=== PATIENT | female | born 1985 | race Hispanic/Latino ===

== ENCOUNTER 2017-10-23 10:05 | Emergency (ER) | payer BC ==
[2017-10-23 10:10] VITALS: BMI 23.3
--- NOTE | 2017-10-23 10:40 | ED PDOC ---
HPI: Female Pain Time Seen by Provider: 10/23/17 10:28 Chief Complaint (Nursing): Abdominal Pain History Per: Patient Onset/Duration Of Symptoms: Days (3) Current Symptoms Are (Timing): Still Present Severity: Moderate Pain Scale Rating Of: 4 Quality Of Discomfort: Cramping Additional Complaint(s): Lower abd cramping over past 3 days. denies vaginal bleeding. Has been trying to get . Seen by OB this AM and urine preg pos. , LMP September 20 Abnormal Vaginal Bleeding: No Past Medical History Vital Signs: Last Vital Signs Temp 98.4 F 10/23/17 10:12 Pulse 81 10/23/17 10:12 Resp 18 10/23/17 10:12 BP 118/71 10/23/17 10:12 Pulse Ox 100 10/23/17 10:12 - Medical History PMH: No Chronic Diseases - Family History Family History: States: Unknown Family Hx - Immunization History Hx Tetanus Toxoid Vaccination: No Hx Influenza Vaccination: No Hx Pneumococcal Vaccination: No - Allergies Allergies/Adverse Reactions: Allergies Allergy/AdvReac Type Severity Reaction Status Date / Time No Known Allergies Allergy Verified 10/23/17 10:31 Review of Systems Gastrointestinal: Positive for: Abdominal Pain Genitourinary Female: Negative for: Vaginal Bleeding Physical Exam - Physical Exam Appears: Positive for: Non-toxic, No Acute Distress Skin: Positive for: Normal Color, Warm, DRY Gastrointestinal/Abdominal: Positive for: Normal Exam, Soft. Negative for: Tenderness Pelvic Exam: Positive for: External Exam Normal. Negative for: Active Bleeding , Tender Adnexa, Tender Uterus - Laboratory Results Result Diagrams: 10/23/17 11:25 - ECG O2 Sat by Pulse Oximetry: 100 Medical Decision Making Medical Decision Making: Evaluated by Dr. Gómez, possibilty of ectopic discussed with Pt. Pt to see Dr. French Friday 10/27 for repeat Beta HCG. Advised to return to ED if increased pain or vaginal bleeding Disposition - Clinical Impression Clinical Impression: Threatened - Patient ED Disposition Is Patient to be Admitted: No - Disposition Referrals: Jason Gómez MD [Staff Provider] - Disposition: Routine/Home Disposition Time: 14:09 Condition: FAIR Instructions: Bleeding With , Threatened Miscarriage, Ectopic Forms: [email or web address] ([place])
[2017-10-23 11:53] LABS: BASO % 0.8 % (0.0-2.0); EOS # 0.1 K/uL (0.0-0.7); EOS % 2.8 % (0.0-4.0); HEMOGLOBIN 14.2 g/dL (12.0-16.0); LYMPH # 1.4 K/uL (1.0-4.3); MEAN CELL VOLUME 93.7 fl (81.0-99.0); MEAN CORPUSCULAR HEMOGLOBIN 32.8 pg (27.0-31.0); MEAN CORPUSCULAR HGB CONC 35.1 g/dL (33.0-37.0); MEAN PLATELET VOLUME 8.1 fl (7.2-11.7); MONO # 0.5 K/uL (0.0-0.8); MONO % 9.4 % (0.0-10.0); NEUT # 3.1 K/uL (1.8-7.0); RBC 4.31 Mil/uL (3.80-5.20); RED CELL DISTRIBUTION WIDTH 12.9 % (11.5-14.5); WHITE BLOOD COUNT 5.1 K/uL (4.8-10.8)
--- NOTE | 2017-10-23 13:00 | US ---
HISTORY: r/o ectopic COMPARISON: Rule out ectopic no prior study available for comparison TECHNIQUE: Transvaginal sonographic evaluation of the pelvis performed. FINDINGS: UTERUS: The uterus is anteverted measuring approximately 6.9 x 4.5 x 3.8 cm. . No obvious intrauterine masses seen. ENDOMETRIUM: Endometrium measures approximately 9 mm in diameter. . No evidence of intrauterine CERVIX: No cervical abnormality identified. RIGHT OVARY: Measures 4.3 x 3.9 x 2.3 cm. There is a any elliptical shaped echogenic structure within the central portion of the right ovary that exhibits a peripheral on ring of increased flow. This could represent a collapsed corpus luteum cyst. In addition, there is a small rounded echogenic structure adjacent to the right ovary that measures approximately 9 0.3 mm. This focus does not exhibit any arterial flow findings must be considered an ectopic until proven otherwise and the face of positive beta HCG. Recommend followup serial serum beta HCG and serial ultrasound. . Normal flow. LEFT OVARY: Measures 2.9 x 2.3 x 1.7 cm. No solid mass. Normal flow. FREE FLUID: Free fluid is present. OTHER FINDINGS: None. IMPRESSION: No evidence of intrauterine gestation. There is also a small rounded echogenic structure adjacent to the right ovary that measures approximately 9.3 mm with free fluid in the pelvis. . This focus does not exhibit significant arterial flow. With a positive beta HCG, collectively these findings must be considered an ectopic until proven otherwise. Recommend followup serial serum beta HCG and serial ultrasound. Findings discussed with Dr. Cartagena at approximately 12:50 p.m. with written down and read back at aeration.
[2017-10-23 14:30] VITALS: BP 118/76; PULSE 79; RESP 17; TEMP 98.7; O2SAT 99
== END 2017-10-23 14:10 | disposition home or self-care (01) ==
LOC: H.ER 10:05
DX: O20.0 Threatened abortion (principal)

== ENCOUNTER 2018-06-29 09:23 | Emergency (ER) | payer BC ==
--- NOTE | 2018-06-29 14:19 | OBHP ---
Datetime: 06/29/2018 09:45 IP Adm Impression: Term, intrauterine ; No Active Labor; Intact Membranes IP Admit Plan: Observation/Evaluation Admit Comment, IP Provider: 33 y/o female at 40.2 week GA by LMP 09/20/18 presents to [facility] w/ c/o painful and intense contractions, which began last night at 6PM. She denies VB, VFL, urinary sx. She endorses movements. No sexual activity in last 24 hours. OB: Dr. Gómez Pmhx: denies HomeRx: vitamins Famhx: non contributory Surghx: denies Socialhx: denies toxic habits Allergies: NKDA ROS: negative except per HPI Physical Exam: Gen: not in acute distress Heart: S1 S2 present, RRR Lungs: Normal resp effort. Clear to auscultation bilaterally Abd: Gravid, soft, non-tender, normal BS SVE: (chaperoned by Nurse Asuncion) 1cm dialated Extremities: no swelling/erythema/tenderness Assessment and Plan 33 y/o female at 40.2 wk GA IUP w/ painful contractions GBS neg, HIV neg, RPR neg, HBsAg neg, Rubella non-immune SVE FT/1cm [place] shows regular contractions NST reactive Patient states she is not interested in epidural or other pain management. Will observe and reevaluate in 1-2 hours for progression 12:37PM Patient re-examined. SVE (by Dr. Babb) FT/1cm dilated. Patient counsled on the R/B/A of oscar ng admited vs. labor at home. She refuses pain management at this time. Patient would like to go home . ER precautions advised. Patient stable discharge to [facility]. Case discussed w/ attending, Dr. Holley Wilcox, pgyi OB Hospitalist on-call : With PGY1m I chery wylie examiend this patient. She was withher , mot her and high risk ob. Optoins given in terms of admisson (pain management, labor, augmentation, delivery).. .She decdied that she want to go home and labor. labor instructoins given. MAHNDO Pelvic Type - PN: Adequate Extremities - PN: Normal Abdomen - PN: Normal Back - PN: Not Done Breast - PN: Not Done Lungs - PN: Normal Heart - PN: Normal Thyroid - PN: Not Done Neurologic - PN: Not Done HEENT - PN: Not Done General - PN: Normal Presentation-Admit: Vertex Contraction Comments Provider: Q4-5mins Comments, ACOG Physical Exam: U/S at bedsite shows fetus in cephalic position Gestation - Est Wks by US: 40.2 IP Hx Assessment: The History has been Reviewed and is Current Vital Signs Provider: Reviewed IP Chief Complaint: Uterine contractions NICHD Variability Prov Fetus A: Moderate 6-25bpm NICHD Accel Fetus A IP Provider: 15X15 FHR Category Provider Fetus A: Category I NICHD Decel Fetus A IP Provider: None Dilatation, Provider: 1 Genitourinary Exam: Not Done DTRs - PN: Not Done
--- NOTE | 2018-06-29 14:23 | OBDCSUM ---
Datetime: 06/29/2018 12:38 Discharged to, Provider: Home Follow up at, Provider: Dr Gómez Disch Instr Activity: Normal activity; May be up to bathroom; May be up for meals; May Shower Disch Instr Diet: Regular Discharge Diagnosis, Provider: False Labor - Undelivered Discharge Time: 06/29/2018 12:40 Follow up in weeks, Provider: 07/05/2017 Disch Referrals: None
[2018-06-29 17:41] VITALS: BMI 29.2
== END 2018-06-29 12:42 | disposition home or self-care (01) ==
LOC: H.EROB2 09:23 → H.EROB 10:03 → H.EROB2 12:42
DX: O26.93 Pregnancy related conditions, unspecified, third trimester (principal); R10.2 Pelvic and perineal pain; O48.0 Post-term pregnancy; Z3A.40 40 weeks gestation of pregnancy

== ENCOUNTER 2018-06-29 17:04 | Inpatient (IN) | payer BC ==
[2018-06-29] MEDS: Lactated Ringer's 1,000 ML IV ONE ×3 (17:35→19:28)
[2018-06-29] MEDS ORDERED: Lidocaine 1% Inj (20ml) ONE (17:36)
[2018-06-29 17:46] VITALS: BMI 29.2
[2018-06-29] MEDS ORDERED: Oxytocin 30 UNIT 30 UNITS/500 ML BAG IV ONE (17:46)
[2018-06-29] MEDS ORDERED: OXYTOCIN/0.9 % NS 20 UNIT/1,000 ML BAG IV ONE (18:08)
[2018-06-29 18:45] LABS: BASO % 0.1 % (0.0-2.0); LYMPH # 0.8 K/uL (1.0-4.3); LYMPH % 3.9 % (20.0-40.0); MEAN CELL VOLUME 91.7 fl (81.0-99.0); MEAN CORPUSCULAR HEMOGLOBIN 31.1 pg (27.0-31.0); MEAN CORPUSCULAR HGB CONC 33.9 g/dL (33.0-37.0); MEAN PLATELET VOLUME 10.3 fl (7.2-11.7); MONO # 0.5 K/uL (0.0-0.8); MONO % 2.7 % (0.0-10.0); NEUT # 19.1 K/uL (1.8-7.0); NEUT % 93.3 % (50.0-75.0); PLATELET COUNT 172 K/uL (130-400); RBC 4.17 Mil/uL (3.80-5.20); RED CELL DISTRIBUTION WIDTH 13.8 % (11.5-14.5); WHITE BLOOD COUNT 20.5 K/uL (4.8-10.8)
--- NOTE | 2018-06-29 19:52 | OBADHP ---
Datetime: 06/29/2018 19:00 Presentation-Admit: Vertex FHR - Baseline A Provider: 150 Membranes, Provider: Ruptured NICHD Variability Prov Fetus A: Moderate 6-25bpm NICHD Accel Fetus A IP Provider: [id number] FHR Category Provider Fetus A: Category II Dilatation, Provider: 9 Effacement, Provider: 100 Station, Provider: 0 Datetime: 06/29/2018 17:49 Pelvic Type - PN: Adequate Extremities - PN: Normal Abdomen - PN: Normal Lungs - PN: Normal Heart - PN: Normal General - PN: Normal Contraction Comments Provider: Q4-5mins Gestation - Est Wks by US: 40.2 IP Hx Assessment: The History has been Reviewed and is Current IP Chief Complaint: Uterine contractions NICHD Decel Fetus A IP Provider: None Genitourinary Exam: Normal EGA AdmitDate IP: 40.2 IP Adm Impression: Term, intrauterine ; Active labor IP Admit Plan: Admit to unit Datetime: 06/29/2018 17:30 Admit Comment, IP Provider: 33 y/o female at 40.2 week GA by LMP 09/20/18 presents to [facility] w/ c/ contractions that are becoming more painful and intense, which began last night at 6PM. She denies VB , VFL, urinary sx. She endorses movements. No sexual activity in last 24 hours. She was evaluat ed earlier today in [facility] and was not in active labor at that time. OB: Dr. Gómez Pmhx: denies HomeRx: vitamins Famhx: non contributory Surghx: denies Socialhx: denies toxic habits Allergies: NKDA ROS: negative except per HPI Physical Exam: Gen: Uncomfortable Heart: S1 S2 present, RRR Lungs: Normal resp effort. Clear to auscultation bilaterally Abd: Gravid, soft, non-tender, normal BS SVE: (by Nurse Cinthia) 8cm dialated, 100%, 0 Extremities: no swelling/erythema/tenderness Assessment and Plan 33 y/o female at 40.2 wk GA IUP w/ painful contractions GBS neg, HIV neg, RPR neg, HBsAg neg, Rubella non-immune SVE 8cm/100/0. [place] shows regular contractions; patient is in active labor Admit Patient to L_D CBC, type and screen ordered 1L LR IV bolus [place] and NST monitoring NPO Case discussed w/ attending, Dr. Holley Wilcox, pgyi Ob Hospitalist on-call WithPGY1 I saw and examined this patinet. 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 She is in active labor...motniro labor progress. Pain management options discussed. Radha EM Vital Signs Provider: Reviewed; Within Normal Limits Datetime: 06/29/2018 09:45 Back - PN: Not Done Breast - PN: Not Done Thyroid - PN: Not Done Neurologic - PN: Not Done HEENT - PN: Not Done Comments, ACOG Physical Exam: U/S at bedsite shows fetus in cephalic position DTRs - PN: Not Done
[2018-06-29] MEDS ORDERED: Oxycodone/Acetaminophen 5/325 mg Tab PO PRN ×2 (20:21→23:30)
[2018-06-29] MEDS ORDERED: Benzocaine/Menthol SPRAY TOP PRN ×2 (20:21→23:30)
[2018-06-29 20:46] LABS: ANISOCYTOSIS SLIGHT; BANDS 1 % (0-2); LYMPHOCYTE 7 % (20-50); MONOCYTE 5 % (0-10); NEUTROPHIL 87 % (42-75); PLATELET ESTIMATE NORMAL (NORMAL); TOTAL CELLS COUNTED 100
--- NOTE | 2018-06-29 21:45 | OBDS ---
DELIVERY PERSONNEL Delivery Doctor: Ashley Babb DO Scrub Nurse: Chiquita Cantu Principal Android Developer: Sherry Sharif RN MATERNAL INFORMATION Delivery Anesthesia: Local Medications in Delivery: lidocaine 2%, pitocin 30units/500ml @ 999ml/hr Estimated Blood Loss (ml): 100 Placenta Cultured: No Maternal Complications: None Provider Comments: Over intact perineum, of live male. One loose nuchal cord was reduc ed upon delivery. Infant was crying spontaneously and bulb suctioned nasopharygeally. Placenta was delivered intact spontaneously. 9,9. She remained stable. After 300cc fluid/after placenta 400cc - EBL 100cc LABOR SUMMARY EDC: 06/27/2018 00:00 No. Babies in Womb: 1 Attempted: No Labor Anesthesia: None LABOR INFORMATION Reason for Induction: Not Applicable Onset of Labor: 06/28/2018 18:00 Complete Dilatation: 06/29/2018 20:00 Oxytocin: N/A Group B Beta Strep: Negative Antibiotics # of Doses: n/a Antibiotics Time of Last Dose: n/a Steroids Given: None Reason Steroids Not Administered: Not Applicable MEMBRANES Membranes Rupture Method: Spontaneous Rupture of Membranes: 06/29/2018 18:57 Length of Rupture (hrs): 1.28 Amniotic Fluid Color: Clear Amniotic Fluid Amount: Large Amniotic Fluid Odor: Normal STAGES OF LABOR Stage 1 hrs: 26 Stage 1 min: 0 Stage 2 hrs: 0 Stage 2 min: 14 Stage 3 hrs: 0 Stage 3 min: 5 Total Time in Labor hrs: 26 Total Time in Labor min: 19 VAGINAL DELIVERY Episiotomy: None Laceration Extension: Second Degree Laceration Type: Perineal Laceration Repair: Yes Laceration Repair Note: 1% Lidocaine infiltrated (3cc). Perineal laceration repaired with 2.0 Vicry l Rapide suture. Initial Vag Sponge Count: 5 Final Vag Sponge Count: 5 Initial Vag Sharps Count: 1 Final Vag Sharps Count: 1 Sponge Count Correct: Yes Sharps Count Correct: Yes Count Comment: 5 lap pads one syringe one suture BABY A INFORMATION Delivery Date/Time: 06/29/2018 20:14 Method of Delivery: Vaginal Born in Route : No : N/A Forceps: N/A Vacuum Extraction: N/A Shoulder Dystocia : No SHOULDER DYSTOCIA BABY A Infant Delivery Date/Time: 06/29/2018 20:14 PRESENTATION/POSITION BABY A Presentation: Cephalic Cephalic Presentation: Vertex Breech Presentation: N/A PLACENTA INFORMATION BABY A Placenta Delivery Time : 06/29/2018 20:19 Placenta Method of Delivery: Spontaneous Placenta Status: Delivered SCORES BABY A Heart Rate 1 min: >100 bpm Resp Effort 1 min: Good Cry Reflex Irritability 1 min: Cough or Sneeze or Pulls Away Muscle Tone 1 min: Active Motion Color 1 min: Body [place], Extremities Blue Resuscitation Effort 1 min: N/A SCORE 1 MIN: 9 Heart Rate 5 min: >100 bpm Resp Effort 5 min: Good Cry Reflex Irritability 5 min: Cough or Sneeze or Pulls Away Muscle Tone 5 min: Active Motion Color 5 min: Body [place], Extremities Blue Resuscitation Effort 5 min: N/A SCORE 5 MIN: 9 INFORMATION BABY A Gestational Age at Delivery: 40.2 Gestational Status: Post-term Infant Outcome : Liveborn Condition : Stable Infant Sex: Male IDENTIFICATION/MEDS BABY A ID Band Number: [id number] ID Band Location: Left Leg; Left Arm WEIGHT/LENGTH BABY A Infant Birthweight (gms): 3135 Infant Weight (lb): 6 Infant Weight (oz): 15 CORD INFORMATION BABY A No. Cord Vessels: 3 Nuchal Cord : Around Neck x1, Loose Cord Blood Taken: Yes Suction: None
[2018-06-30 06:36] LABS: BASO % 0.2 % (0.0-2.0); EOS % 0.2 % (0.0-4.0); HEMOGLOBIN 11.4 g/dL (12.0-16.0); LYMPH # 1.7 K/uL (1.0-4.3); LYMPH % 10.1 % (20.0-40.0); MEAN CELL VOLUME 92.1 fl (81.0-99.0); MEAN CORPUSCULAR HEMOGLOBIN 31.1 pg (27.0-31.0); MEAN CORPUSCULAR HGB CONC 33.8 g/dL (33.0-37.0); MEAN PLATELET VOLUME 9.4 fl (7.2-11.7); MONO # 1.5 K/uL (0.0-0.8); NEUT # 13.7 K/uL (1.8-7.0); NEUT % 80.5 % (50.0-75.0); NRBC % 0.1 % (0.0-0.0); RBC 3.67 Mil/uL (3.80-5.20); RED CELL DISTRIBUTION WIDTH 13.8 % (11.5-14.5)
--- NOTE | 2018-06-30 08:09 | OBPN ---
Datetime: 06/29/2018 19:00 IP Progress Impression: Normal progression of labor IP Progress Plan: Continue present management; Anticipate Vaginal Delivery Membranes, Provider: Ruptured FHR - Baseline A Provider: 150 Presentation-Admit: Vertex IP Progress Note Comment: Notified that she had SROM +CTX pain SVE 9cm - SROM clear Breathing with briquetter operator; monitor progress; o2 LEFT LATERAL NICHD Accel Fetus A IP Provider: 15X15 FHR Category Provider Fetus A: Category II NICHD Variability Prov Fetus A: Moderate 6-25bpm Dilatation, Provider: 9 Effacement, Provider: 100 Station, Provider: 0 Datetime: 06/29/2018 17:49 Contraction Comments Provider: Q4-5mins Gestation - Est Wks by US: 40.2 NICHD Decel Fetus A IP Provider: None Datetime: 06/29/2018 17:30 Vital Signs Provider: Reviewed; Within Normal Limits
[2018-06-30] MEDS: Multivitamin With Minerals Tab PO SCH (08:58)
[2018-06-30] MEDS ORDERED: Multivitamin With Minerals Tab PO SCH (09:00)
--- NOTE | 2018-06-30 12:17 | OBPPN ---
Datetime: 06/30/2018 12:15 PP Pain Prov: Within normal limits PP Nausea Prov: Denies PP Flatus Prov: Yes PP Breasts Prov: Not Done PP Heart Prov: Normal PP Lungs Prov: Normal PP Abdomen/Uterus Prov: Normal PP Lochia Prov: Not Done PP Vulva/Perineum Prov: Not Done PP CVA Tenderness Prov: Normal PP Extremities Prov: Normal PP Progress Prov: Normal PP Impression Prov: Normal progression PP Plan Prov: Continue present management PP Progress Note Prov: Patient doing well ambulating tolerating diet and voiding without difficulty she reports minimal lochia pain well-controlled Vital signs stable afebrile Uterus firm below the level umbilicus Extremities no Homans day 1 Ambulate, regular diet, analgesias needed Patient desires circumcision for baby informed consent was obtained discussed risks benefits alter natives patient would like to proceed with plan of care Vital Signs Provider PP: Reviewed
[2018-07-01] MEDS: Multivitamin With Minerals Tab PO SCH (08:50)
[2018-07-01] MEDS ORDERED: Measles, Mumps, and Rubella 0.5 ML VIAL SC ONE (12:33)
[2018-07-02 03:37] VITALS: BP 108/69; PULSE 81; RESP 18; TEMP 98.7
== END 2018-07-01 15:00 | disposition home or self-care (01) | DRG 807 ==
LOC: H.EROB2 17:04 → H.L&D 17:46 → H.OB/GYN 22:49
PROVIDERS: ADMIT Obstetrics & Gynecology; ATTEND Obstetrics & Gynecology
PROC: 10E0XZZ Delivery of Products of Conception, External Approach (ICD-10-PCS; principal; 2018-06-29)
PROC: 0KQM0ZZ Repair Perineum Muscle, Open Approach (ICD-10-PCS; 2018-06-29)
PROC: 4A1HXCZ Monitoring of Products of Conception, Cardiac Rate, External Approach (ICD-10-PCS; 2018-06-29)
DX: O69.81X0 Labor and delivery complicated by cord around neck, without compression, not applicable or unspecified (principal); Z37.0 Single live birth; O70.1 Second degree perineal laceration during delivery; Z3A.40 40 weeks gestation of pregnancy; O48.0 Post-term pregnancy